=== PATIENT | female | born 2005 | race Caucasian/White ===

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

== ENCOUNTER 2024-11-22 17:43 | Emergency (ER) | payer MEDICAID, SELFPAY ==
[2024-11-22 17:48] VITALS: BP 113/77; PULSE 78; RESP 18; TEMP 36.9; O2SAT 99; BMI 30.8
--- NOTE | 2024-11-22 18:08 | ED.GENADULT ---
HPI - General Adult General Date Seen: 11/22/24 Chief complaint: Abdominal Pain Stated complaint: Nausea, vomiting, pain in stomach Time Seen by Provider: 11/22/24 18:03 History of Present Illness HPI narrative: 19-year-old female who is generally healthy (history of strep throat) presenting to the ER today with abdominal pain, nausea and vomiting that began 2 days ago. She has no previous abdominal surgeries. She works in a senior living. She has no known sick exposures. She has been ill for about 2 or 3 days. Symptoms began with some abdominal cramping a couple of days ago and some mild nausea. Yesterday afternoon and evening things got worse where she had more nausea and she had 3 episodes of nonbilious, nonbloody emesis. This morning she was still mildly nauseous and having crampy pain but not vomiting. This afternoon she got worsened his bed a couple more episodes of vomiting. She has been trying to manage her pain and has been taking ibuprofen. When she takes ibuprofen it is affective for couple of hours but then wears off. Last dose of ibuprofen was around noon today. She is having increasing abdominal cramping, located in the generalized abdomen, most in the suprapubic and periumbilical regions. More on the left than on the right. The pain is not really been migrating removed when the right hip. No relationship with eating or drinking. Bowel movements have been normal. No diarrhea. No black or bloody stools. Last normal menstrual cycle was around the 1st of the month, about 31 days ago. She did have a couple of days some whitish/brownish bleeding last week that she thought a minute might have been a light menstrual cycle. No other vaginal bleeding or discharge. She does not think she is but it is possible. Related Data Home Medications ?Medication ?Instructions ?Recorded ?Confirmed triamcinolone acetonide 0.1 % applic topical PRN 10/30/23 10/29/24 topical cream Allergies Allergy/AdvReac Type Severity Reaction Status Date / Time No Known Drug Allergies Allergy Verified 11/22/24 17:54 [facility] Social History Smoking Status: Never smoker Do you use any of these nicotine containing products: None How often do you have a drink containing alcohol: never AUDIT-C Alcohol total score: 0 Non-prescribed substance use: denies use service: No Exam Narrative: Exam Narrative: Constitutional: Appears well-developed and well-nourished. Alert. Conversant. Polite. Non toxic. HENT: Head: Atraumatic. Nose: Nose normal. Mouth/Throat: Oral mucosa is clear and moist. no trismus. Pharynx normal. Tonsils symmetric. No tonsillar enlargement, erythema, or exudate. Eyes: Conjunctivae normal. EOM normal. Pupils equal, round, and reactive to light. No scleral icterus. Neck: Normal range of motion. Neck supple. No tracheal deviation present. Cardiovascular: Normal rate, regular rhythm. No gallop. No friction rub. No murmur heard. Symmetric radial artery pulses Pulmonary/Chest: Effort normal. No stridor. No respiratory distress. No wheezes. No rales. No rhonchi . No tenderness. Abdominal: Soft. Bowel sounds normal. No distension. No mass. Suprapubic and periumbilical> right lower quad> right upper quadrant tenderness. No left-sided tenderness. No CVA tenderness. No rebound. No guarding. No Rovsing sign Musculoskeletal: RUE: Normal range of motion. No tenderness. No deformity LUE: Normal range of motion. No tenderness. No deformity RLE: Normal range of motion. No edema. No tenderness. No deformity LLE: Normal range of motion. No edema. No tenderness. No deformity Neurological: Alert and oriented to person, place, and time. Normal strength. CN II-VII intact. No sensory deficit. GCS eye subscore is 4. GCS verbal subscore is 5. GCS motor subscore is 6. Normal coordination Skin: Skin is warm and dry. No rash noted. No pallor. Normal capillary refill. Psychiatric: Normal mood. Normal affect. Const: Vital Signs, click to edit/add: Vital Signs - 24 hr 11/22/24 17:48 11/22/24 19:45 Temperature 98.4 F Pulse Rate 80 Pulse Rate [Right Pulse Oximeter] 78 Respiratory Rate 18 16 Blood Pressure 122/69 Blood Pressure [Ri ght Upper Arm] 113/77 Pulse Oximetry 99 99 Oxygen Delivery Me thod Room Air Course Course ED Course: This patient presents with vomiting periumbilical, suprapubic crampy abdominal pain. Symptoms ongoing for a couple of days. Nausea and cramping got worse today. The patient's symptoms and exam could be consistent with a viral GI infection. There is no high fever, severe pain, bilious or bloody emesis, blood or mucous in the stool, severe abdominal pain, or other concerning signs for a bacterial infection. No recent travel or high risk exposure for bacterial pathogen. No recent antibiotics or risk factors for C. diff. she did have mild tenderness. Mostly periumbilical insert review but also a little bit right lower quadrant right upper quadrant. No guarding or rebound. No Khalil sign. No left-sided tenderness. Pain was substantially improved after Toradol given here in the ER. Labs show white count of 11.6 but otherwise normal. At this point will hold off on CT, given low suspicion for appendicitis, bowel obstruction, abscess, bowel perforation, or other surgical emergency. Labs show no concerning electrolyte disturbance or renal failure. After meds given the patient is feeling better. At this point, the patient is non-septic appearing and well hydrated.I think the patient can be managed as an outpatient. We have discussed oral rehydration strategies. They understand and can perform the needed interventions at home. I have provided a prescription for antiemetics to facilitate oral hydration (Zofran oral solving tablet, Instymeds). We discussed the differential and management. Precautions for immediate return to the ER reviewed. They are also directed to obtain close outpatient follow up within 24-48 hours unless dramatically improved. Return to the ER right away if worse. Vital Signs Vital signs: Initial Vital Signs Temperature 98.4 F 11/22/24 17:48 Temperature Source Temporal Artery Scan 11/22/24 17:48 Pulse Rate 78 11/22/24 17:48 Pulse Rhythm Regular 11/22/24 17:48 Pulse Strength 3+ Normal 11/22/24 17:48 Respiratory Rate 18 11/22/24 17:48 Blood Pressure 113/77 11/22/24 17:48 Blood Pressure Mean 89 11/22/24 17:48 Blood Pressure Position Sitting 11/22/24 17:48 Pulse Oximetry 99 11/22/24 17:48 Oxygen Delivery Method Room Air 11/22/24 17:48 Vital Signs Temperature 98.4 F 11/22/24 17:48 Pulse Rate 78 11/22/24 17:48 Respiratory Rate 18 11/22/24 17:48 Blood Pressure 113/77 11/22/24 17:48 Pulse Oximetry 99 11/22/24 17:48 Oxygen Delivery Method Room Air 11/22/24 17:48 Temperature 98.4 F 11/22/24 17:48 Pulse Rate 80 11/22/24 19:45 Respiratory Rate 16 11/22/24 19:45 Blood Pressure 122/69 11/22/24 19:45 Pulse Oximetry 99 11/22/24 19:45 Oxygen Delivery Method Room Air 11/22/24 17:48 Medications Administered Medications: Discontinued Medications Generic Name Dose Route Start Last Admin Trade Name Freq PRN Reason Stop Dose Admin Sodium Chloride 500 mls @ 500 mls/hr 11/22/24 18:31 11/22/24 19:45 0.9 % Sodium Chloride 500 Ml IV 11/22/24 19:30 Infused .Q1H ONE Infusion Ketorolac Tromethamine 15 mg 11/22/24 18:31 11/22/24 18:56 Ketorolac 15 Mg/Ml Inj IVP 11/22/24 18:32 15 mg ONCE ONE Administration Ondansetron HCl 4 mg 11/22/24 18:31 11/22/24 18:57 Ondansetron 2 Mg/Ml Inj IVP 11/22/24 18:32 4 mg ONCE ONE Administration Medical Decision Making Lab Data Labs: Lab Results 11/22/24 11/22/24 Range/Units 18:55 19:25 WBC 11.63 H (4.50-11.00) K/uL RBC 4.52 (4.00-5.20) m/uL Hgb 13.1 (12.0-16.0) gm/dL Hct 39.6 (33.0-51.0) % MCV 88 (80-100) fL MCH 29 (26-34) pg MCHC 33 (32-36) gm/dL RDW Coeff of Jairo 12.7 (11.5-15.5) % Plt Count 255 (140-440) K/uL Neut % (Auto) 78.6 H (42.0-72.0) % Lymph % (Auto) 13.9 L (20-44) % [place] % (Auto) 5.7 (0.0-11.0) % Eos % (Auto) 1.6 (0.0-7.0) % Baso % (Auto) 0.1 (0.0-3.0) % Neut # (Auto) 9.10 H (1.7-7.0) K/uL Lymph # (Auto) 1.60 (0.90-2.90) K/uL [place] # (Auto) 0.70 (0.00-0.90) K/UL Eos # (Auto) 0.20 (0.00-0.50) K/uL Baso # (Auto) 0.00 (0.00-0.30) K/uL Abs Immat Gran (auto) 0.00 (0.00-0.30) K/uL Imm/Tot Granulo (auto) 0.1 % Sodium 138 (135-149) mmol/L Potassium 3.8 (3.6-5.1) mmol/L Chloride 104 (96-114) mmol/L Carbon Dioxide 25 (20-32) mmol/L Anion Gap 9 (7-15) mEq/L BUN 10 (5-24) mg/dL Creatinine 0.7 (0.5-1.5) mg/dL Estimated Creat Clear 115.36 Estimated GFR 127 ml/min Glucose 94 (60-115) mg/dL Calcium 8.7 (8.4-10.6) mg/dL Total Bilirubin 0.5 (0.1-1.5) mg/dL AST 23 (12-35) U/L ALT 16 (4-35) U/L Alkaline Phosphatase 78 (40-150) U/L Total Protein 7.7 (6.0-8.3) g/dL Albumin 4.5 (3.3-5.0) g/dL Lipase 74 (23-300) U/L Urine Color Yellow (Yellow) Urine Appearance Clear (Clear) Urine pH 5.5 (5.0-8.5) Ur Specific [place] >= 1.030 (1.000-1.030) Urine Protein Negative (Negative) Urine Glucose (UA) Negative (Negative) Urine Ketones Trace A (Negative) Urine Blood Negative (Negative) Urine Nitrite Negative (Negative) Urine Bilirubin Negative (Negative) Urine Urobilinogen 0.2 (0.2-1.0) Ur Leukocyte Esterase Negative (Negative) Urine RBC 0-2 (0-2) Urine WBC 0-2 (0-5) Ur Squamous Epith Cells Few (None-Few) Urine Bacteria Moderate A (None) Urine HCG, Qual Negative (Negative) Discharge Plan Discharge Prescriptions: No Action triamcinolone acetonide 0.1 % cream TOPICAL PRN Follow Up/Referrals: Gail Hope MD [Primary Care Provider] -
[2024-11-22] MEDS: KETOROLAC 15 MG/ML inj IVP (18:56)
[2024-11-22] MEDS: 0.9 % SODIUM CHLORIDE 500 ML 500 ML IV (18:56)
[2024-11-22] MEDS: ONDANSETRON 2 MG/ML inj 4 MG IVP (18:57)
[2024-11-22 19:10] LABS: Basophils Percent Auto 0.1 % (0.0-3.0); Eosinophils Percent Auto 1.6 % (0.0-7.0); Hematocrit* 39.6 % (33.0-51.0); Hemoglobin* 13.1 gm/dL (12.0-16.0); Immature Granulocytes Pct Auto 0.1 %; Lymphocytes Percent Auto 13.9 % (20-44); Mean Corpuscular HGB Conc 33 gm/dL (32-36); Mean Corpuscular Hemoglobin 29 pg (26-34); Mean Corpuscular Volume 88 fL (80-100); Monocytes Percent Auto 5.7 % (0.0-11.0); Neutrophils Percent Auto 78.6 % (42.0-72.0); Platelet Count* 255 K/uL (140-440); RDW Coefficient of Variation % 12.7 % (11.5-15.5); Red Blood Count* 4.52 m/uL (4.00-5.20); White Blood Count* 11.63 K/uL (4.50-11.00)
[2024-11-22 19:14] LABS: Slide Review Reflex No
[2024-11-22 19:19] LABS: Albumin* 4.5 g/dL (3.3-5.0); Chloride* 104 mmol/L (96-114); Potassium* 3.8 mmol/L (3.6-5.1); Sodium* 138 mmol/L (135-149)
[2024-11-22 19:21] LABS: Bilirubin Total* 0.5 mg/dL (0.1-1.5); Creatinine* 0.7 mg/dL (0.5-1.5); Est. Creatinine Clearance* 115.36; Estimated Glomerular Filt Rate 127 ml/min
[2024-11-22 19:22] LABS: Alanine Aminotransferase* 16 U/L (4-35); Alkaline Phosphatase* 78 U/L (40-150); Anion Gap 9 mEq/L (7-15); Aspartate Amino Transferase* 23 U/L (12-35); Blood Urea Nitrogen* 10 mg/dL (5-24); Calcium* 8.7 mg/dL (8.4-10.6); Carbon Dioxide* 25 mmol/L (20-32); Glucose* 94 mg/dL (60-115); Lipase* 74 U/L (23-300); Total Protein* 7.7 g/dL (6.0-8.3)
[2024-11-22 19:37] LABS: Ur HCG Qualitative* Negative (Negative)
[2024-11-22 19:38] LABS: Appearance Urine Clear (Clear); Bilirubin Urine Negative (Negative); Blood Urine Negative (Negative); Color Urine Yellow (Yellow); Glucose Urine Negative (Negative); Ketones Urine Trace (Negative); Leukocyte Esterase Urine Negative (Negative); Nitrite Urine Negative (Negative); Protein Urine Negative (Negative); Specific Gravity Urine >= 1.030 (1.000-1.030); Urobilinogen Urine 0.2 (0.2-1.0); pH Urine 5.5 (5.0-8.5)
[2024-11-22 19:44] LABS: Bacteria Urine Moderate; RBC Urine 0-2 (0-2); Squamous Epithelial Cell Urine Few (None-Few); WBC Urine 0-2 (0-5)
[2024-11-22 19:45] VITALS: BP 122/69; PULSE 80; RESP 16; O2SAT 99
== END 2024-11-22 20:31 | disposition home or self-care (01) ==
PROVIDERS: Emergency Provider Emergency Medicine; PCP Family Medicine
DX: R10.31 Right lower quadrant pain (principal); R10.11 Right upper quadrant pain
CPT/HCPCS: 36415; 80053; 81001; 81025; 83690; 85025; 87086; 96374; 96375; 99283; J1885; J2405; J7030